=== PATIENT | female | born 1990 | race Two or more races ===

== ENCOUNTER 2022-01-31 21:37 | Emergency (ER) | payer MEDICAID, OTHER ==
[~2022-01-31] VITALS: Ht 157.5 cm; Wt 86.2 kg
[2022-01-31 21:37] VITALS: BP 127/82
[2022-02-01] MEDS ORDERED: methylPREDNISolone SOD SUCC 125 MG/2 ML VL IM ONE (00:15)
[2022-02-01] MEDS ORDERED: KETOROLAC TROMETH 30 MG/ML 1ML VIAL IM ONE (00:15)
[2022-02-01] MEDS ORDERED: IBUP800T26 PO (00:44)
[2022-02-01] MEDS ORDERED: CYCL-837 PO (00:44)
== END 2022-02-01 02:26 | disposition home or self-care (01) ==
LOC: ER 21:37
DX: M54.16 Radiculopathy, lumbar region (principal); M79.10 Myalgia, unspecified site
CPT/HCPCS: 72100; 96372; 99284; J1885; J2930